=== PATIENT | male | born 1935 | race Caucasian/White ===

== ENCOUNTER 2016-08-12 11:06 | Observation (INO) | payer MEDICARE, OTHER ==
[~2016-08-12 11:06] MED LIST: ALDACTONE25 M1 PO; ALLOPURINOL300 M1 PO; ALLOPURINOL300 MG; ALLOPURINOL300 MG PO; AMIODARONE HCL200 M1 PO; ASPIR 8181 MG PO; ASPIRIN325 M3; ASPIRIN325 M3 PO; ATENOLOL100 MG PO; ATORVASTATIN CA10 M1 PO; AZELASTINE137 MCG/01; CELEBREX200 MG; COLACE100 MG PO; CPAP; DOCUSATE SODIU100 M; DOCUSATE SODIU100 M2 PO; DOCUSATE SODIU100 M3 PO; DULCOLAX5 MG PO; FAMOTIDINE20 M3 PO; FEROSUL325 M1 PO; FOLIC ACID0.8 M1 PO; FOLIC ACID1 M1 PO; FUROSEMIDE40 M2 PO; FUROSEMIDE40 MG; HYTRIN10 MG; HYTRIN10 MG PO; K-TAB ER20 ME1 PO; LASIX40 M1 PO; LEVOTHYROXINE75 MC3 PO; LIPITOR10 M1 PO; MAALOX MS LIQU360 ML PO; METAMUCIL PACK3.4 G1 PO; METHOTREXATE2.5 M1 PO; METOPROLOL SUCC25 M1 PO; MILK OF MA400 MG/5 M PO; MOBIC7.5 MG PO; MULTIVITAMIN1 TAB PO; MULTIVITAMINS1 EAC7 PO; NORCO 5-325 TA1 EACH PO; NORCO 5/3251 TAB PO; NORCO 7.5/3251 TAB PO; OMEPRAZOLE20 M3 PO; PEPCID20 M1 PO; PEPCID20 MG; PLAVIX75 M1 PO; POTASSIUM CHLO20 ME3 PO; POTASSIUM CHLO20 MEQ; PREDNISONE2.5 M1 PO; SENNA PLUS TAB1 EAC1 PO; SENOKOT-S TABLE1 TAB PO; SPIRONOLACTONE25 M2 PO; STOOL SOFTENER100 M3 PO; TERAZOSIN HCL10 M1 PO; TOPROL XL25 M1 PO; TUMS500 M1 PO; TYLENOL325 MG PO; [UNRECOGNIZED DRUG - OTHER] MM
[2016-08-12 12:46] LABS: BASO % 0.1 % (0-2); EOS % 1.2 % (0-7); EOSINOPHIL ABSOLUTE COUNT 0.1 tho/cmm (0.0-0.7); HCT-HEMATOCRIT 33.7 % (36.0-53.5); HGB-HEMOGLOBIN 11.2 gm/dl (13.5-17.0); IMMATURE GRANULOCYTES ABSOLUTE 0.16 tho/cmm (0-0.03); IMMATURE GRANULOCYTES PERCENT 2.1 % (0-0.3); LYMPH % 17.7 % (20-45); LYMPH ABSOLUTE COUNT 1.4 tho/cmm (0.8-4.5); MCH (MEAN CORPUSCULAR HGB) 33.5 pg (28.0-32.0); MCHC MEAN CORPUSCULAR HGB CONC 33.2 % (32.0-36.0); MCV (MEAN CELL VOLUME) 100.9 fl (82.0-96.0); MONO % 8.8 % (0-12); MONOCYTE ABSOLUTE COUNT 0.7 tho/cmm (0.0-1.2); NEUTROPHIL ABSOLUTE COUNT 5.3 tho/cmm (1.6-8.0); NEUTROPHIL-AUTOMATED 5.3 tho/cmm (1.6-8.0); NEUTROPHILS % 70.1 % (40-80); PLATELET COUNT 240 tho/cmm (150-450); RED BLOOD COUNT 3.34 mil/cmm (4.40-5.70); RED CELL DISTRIBUTION WIDTH 17.1 % (12.4-16.4); WHITE BLOOD COUNT 7.6 tho/cmm (4.0-10.0)
[2016-08-12 12:56] LABS: ANION GAP 13 mmol/L (0-20); BLOOD UREA NITROGEN 21 mg/dl (6-24); CALCIUM 8.9 mg/dl (8.5-10.5); CARBON DIOXIDE-VENOUS 29 mmol/L (22-32); CHLORIDE 98 mmol/l (96-110); CREATININE 1.42 mg/dl (0.60-1.30); GLUCOSE 110 mg/dL (70-110); POTASSIUM 3.5 mmol/L (3.7-5.1); SODIUM 136 mmol/L (135-145); eGFR VALUE FOR BLACK 53 mL/Min
[2016-08-12 13:14] LABS: ESR-ERYTHROCYTE SED RATE 65 mm/hr (0-20)
[2016-08-13 06:50] LABS: ANION GAP 12 mmol/L (0-20); BLOOD UREA NITROGEN 20 mg/dl (6-24); CALCIUM 8.6 mg/dl (8.5-10.5); CARBON DIOXIDE-VENOUS 30 mmol/L (22-32); CHLORIDE 97 mmol/l (96-110); CREATININE 1.13 mg/dl (0.60-1.30); GLUCOSE 97 mg/dL (70-110); POTASSIUM 3.3 mmol/L (3.7-5.1); SODIUM 136 mmol/L (135-145); eGFR VALUE FOR BLACK 70 mL/Min
[2016-10-26] MEDS ORDERED: AMITIZA24 MC1 PO (12:45)
[2016-10-26] MEDS ORDERED: FLOMAX0.4 M1 (12:45)
[2016-10-29] MEDS ORDERED: MIDODRINE HCL10 M1 PO (09:23)
[2016-10-29] MEDS ORDERED: KEFLEX500 M4 PO (09:38)
== END 2016-08-13 11:55 ==
LOC: EDMED 11:06 → EMR2 14:46 → CAR1 16:51
PROVIDERS: Physician Assistant; ADMIT Internal Medicine
DX: H34.9 Unspecified retinal vascular occlusion (principal); I73.9 Peripheral vascular disease, unspecified; I25.10 Atherosclerotic heart disease of native coronary artery without angina pectoris; I65.29 Occlusion and stenosis of unspecified carotid artery; I48.2 Chronic atrial fibrillation; M06.9 Rheumatoid arthritis, unspecified; I10 Essential (primary) hypertension; E78.5 Hyperlipidemia, unspecified; M19.90 Unspecified osteoarthritis, unspecified site; N28.9 Disorder of kidney and ureter, unspecified; Z79.52 Long term (current) use of systemic steroids; Z79.82 Long term (current) use of aspirin; Z79.899 Other long term (current) drug therapy; Z88.8 Allergy status to other drugs, medicaments and biological substances; Z95.1 Presence of aortocoronary bypass graft; Z98.890 Other specified postprocedural states
CPT/HCPCS: A9577; G0378; J7030

== ENCOUNTER 2016-09-18 12:04 | Inpatient (IN) | payer MEDICARE, OTHER ==
[2016-09-18 12:48] LABS: BASO % 0.1 % (0-2); EOS % 1.6 % (0-7); EOSINOPHIL ABSOLUTE COUNT 0.1 tho/cmm (0.0-0.7); HCT-HEMATOCRIT 32.7 % (36.0-53.5); HGB-HEMOGLOBIN 10.9 gm/dl (13.5-17.0); IMMATURE GRANULOCYTES ABSOLUTE 0.13 tho/cmm (0-0.03); IMMATURE GRANULOCYTES PERCENT 1.7 % (0-0.3); LYMPH % 14.8 % (20-45); LYMPH ABSOLUTE COUNT 1.1 tho/cmm (0.8-4.5); MCH (MEAN CORPUSCULAR HGB) 33.3 pg (28.0-32.0); MCHC MEAN CORPUSCULAR HGB CONC 33.3 % (32.0-36.0); MEAN PLATELET VOLUME 9.4 cmc (9.4-12.4); MONO % 7.4 % (0-12); MONOCYTE ABSOLUTE COUNT 0.6 tho/cmm (0.0-1.2); NEUTROPHIL ABSOLUTE COUNT 5.6 tho/cmm (1.6-8.0); NEUTROPHIL-AUTOMATED 5.6 tho/cmm (1.6-8.0); NEUTROPHILS % 74.4 % (40-80); PLATELET COUNT 244 tho/cmm (150-450); RED BLOOD COUNT 3.27 mil/cmm (4.40-5.70); RED CELL DISTRIBUTION WIDTH 16.9 % (12.4-16.4); WHITE BLOOD COUNT 7.6 tho/cmm (4.0-10.0)
[2016-09-18 12:51] LABS: INR 1.1 INR (0.9-1.1); PROTHROMBIN TIME 12.4 SECONDS (9.0-13.6)
[2016-09-18 12:58] LABS: ANION GAP 12 mmol/L (0-20); BLOOD UREA NITROGEN 17 mg/dl (6-24); CALCIUM 8.8 mg/dl (8.5-10.5); CARBON DIOXIDE-VENOUS 28 mmol/L (22-32); CHLORIDE 98 mmol/l (96-110); CREATININE 1.18 mg/dl (0.60-1.30); GLUCOSE 98 mg/dL (70-110); POTASSIUM 3.8 mmol/L (3.7-5.1); SODIUM 134 mmol/L (135-145); eGFR VALUE FOR BLACK 67 mL/Min
[2016-09-19 04:31] LABS: BASO % 0.1 % (0-2); HCT-HEMATOCRIT 26.6 % (36.0-53.5); HGB-HEMOGLOBIN 8.8 gm/dl (13.5-17.0); IMMATURE GRANULOCYTES ABSOLUTE 0.07 tho/cmm (0-0.03); IMMATURE GRANULOCYTES PERCENT 0.7 % (0-0.3); LYMPH % 6.1 % (20-45); LYMPH ABSOLUTE COUNT 0.6 tho/cmm (0.8-4.5); MCH (MEAN CORPUSCULAR HGB) 32.8 pg (28.0-32.0); MCHC MEAN CORPUSCULAR HGB CONC 33.1 % (32.0-36.0); MCV (MEAN CELL VOLUME) 99.3 fl (82.0-96.0); MEAN PLATELET VOLUME 9.7 cmc (9.4-12.4); MONO % 1.9 % (0-12); MONOCYTE ABSOLUTE COUNT 0.2 tho/cmm (0.0-1.2); NEUTROPHILS % 91.2 % (40-80); PLATELET COUNT 221 tho/cmm (150-450); RED BLOOD COUNT 2.68 mil/cmm (4.40-5.70); RED CELL DISTRIBUTION WIDTH 16.8 % (12.4-16.4); WHITE BLOOD COUNT 9.9 tho/cmm (4.0-10.0)
[2016-09-19 04:41] LABS: ANION GAP 11 mmol/L (0-20); BLOOD UREA NITROGEN 17 mg/dl (6-24); CALCIUM 7.7 mg/dl (8.5-10.5); CARBON DIOXIDE-VENOUS 26 mmol/L (22-32); CHLORIDE 101 mmol/l (96-110); CREATININE 0.97 mg/dl (0.60-1.30); GLUCOSE 131 mg/dL (70-110); POTASSIUM 4.1 mmol/L (3.7-5.1); SODIUM 134 mmol/L (135-145); eGFR VALUE FOR BLACK 85 mL/Min
[2016-09-22] MEDS ORDERED: ULTRAM50 M1 PO (12:37)
[2016-09-22] MEDS ORDERED: TYLENOL325 M2 PO (12:37)
[2016-09-22] MEDS ORDERED: SENOKOT-S TABL1 EACH PO ×2 (12:39→12:40)
[2016-10-26] MEDS ORDERED: AMITIZA24 MC1 PO (12:45)
[2016-10-26] MEDS ORDERED: FLOMAX0.4 M1 (12:45)
[2016-10-29] MEDS ORDERED: MIDODRINE HCL10 M1 PO (09:23)
[2016-10-29] MEDS ORDERED: KEFLEX500 M4 PO (09:38)
== END 2016-09-22 13:00 | disposition swing bed (61) | DRG 467 ==
LOC: SHSA 12:04 → ORE 15:34 → PACU 17:54 → 5EA 19:30
PROVIDERS: Registered Nurse; ADMIT Orthopaedic Surgery Foot and Ankle Surgery
PROC: 0SRC0J9 Replacement of Right Knee Joint with Synthetic Substitute, Cemented, Open Approach (ICD-10-PCS; principal; 2016-09-18)
PROC: 0SPC0JZ Removal of Synthetic Substitute from Right Knee Joint, Open Approach (ICD-10-PCS; 2016-09-18)
PROC: 5A09357 Assistance with Respiratory Ventilation, Less than 24 Consecutive Hours, Continuous Positive Airway Pressure (ICD-10-PCS; 2016-09-18)
DX: T84.012A Broken internal right knee prosthesis, initial encounter (principal); J84.9 Interstitial pulmonary disease, unspecified; G62.9 Polyneuropathy, unspecified; D62 Acute posthemorrhagic anemia; I48.0 Paroxysmal atrial fibrillation; I10 Essential (primary) hypertension; E03.9 Hypothyroidism, unspecified; E78.5 Hyperlipidemia, unspecified; M06.9 Rheumatoid arthritis, unspecified; M10.9 Gout, unspecified; I25.10 Atherosclerotic heart disease of native coronary artery without angina pectoris; M19.90 Unspecified osteoarthritis, unspecified site; N40.0 Benign prostatic hyperplasia without lower urinary tract symptoms; K21.9 Gastro-esophageal reflux disease without esophagitis; Z79.82 Long term (current) use of aspirin; Z96.643 Presence of artificial hip joint, bilateral; Z87.891 Personal history of nicotine dependence; I73.9 Peripheral vascular disease, unspecified; G47.33 Obstructive sleep apnea (adult) (pediatric); Z87.11 Personal history of peptic ulcer disease; Z85.828 Personal history of other malignant neoplasm of skin; I95.81 Postprocedural hypotension; Z79.01 Long term (current) use of anticoagulants; E78.00 Pure hypercholesterolemia, unspecified; Z79.52 Long term (current) use of systemic steroids; Z79.899 Other long term (current) drug therapy
CPT/HCPCS: C1713; C1776; J0171; J0690; J1885; J2270; J2795; J2930; J3370; J7030; J7512